=== PATIENT | male | born 1950 | race Caucasian/White ===

== ENCOUNTER → 2016-10-05 | Outpatient (CLI) | payer MEDICARE | LOC: GMAM 14:13 | PROVIDERS: ATTEND Family Medicine | DX: R80.9 Proteinuria, unspecified (principal) ==

== ENCOUNTER → 2016-10-25 | Outpatient (CLI) | payer MEDICARE | END | disposition home or self-care (01) | LOC: LAB.O 12:18 | PROVIDERS: ATTEND Internal Medicine Nephrology | DX: N18.4 Chronic kidney disease, stage 4 (severe) (principal); Z01.89 Encounter for other specified special examinations ==

== ENCOUNTER → 2017-04-30 | Outpatient (CLI) | payer MEDICARE | LOC: GMAM 11:34 | PROVIDERS: ATTEND Family Medicine | DX: E29.1 Testicular hypofunction (principal) ==

== ENCOUNTER → 2017-05-02 | Outpatient (CLI) | payer MEDICARE | LOC: GMAM 11:04 | PROVIDERS: ATTEND Family Medicine | DX: R35.0 Frequency of micturition (principal); R31.21 Asymptomatic microscopic hematuria; Z12.5 Encounter for screening for malignant neoplasm of prostate | CPT/HCPCS: 87086; G0103 ==

== ENCOUNTER → 2018-04-12 | Outpatient (CLI) | payer MEDICARE | LOC: GMAM 10:45 | PROVIDERS: ATTEND Family Medicine | DX: R97.20 Elevated prostate specific antigen [PSA] (principal) ==

== ENCOUNTER 2018-04-18 07:30 | Day surgery (SDC) | payer MEDICARE ==
[~2018-04-18 07:30] MED LIST: LIDOCAINE 1% 10 ML VIAL INJ ONE; PROPOFOL 200 MG/20 ML VIAL IV ONE
--- NOTE | 2018-04-18 10:44 | RAD ---
EXAM DESCRIPTION: Chest,2 Views CLINICAL HISTORY: PREOP COMPARISON: None TECHNIQUE: PA/lateral FINDINGS: There is no acute appearing cardiac or pulmonary abnormality. Heart size is normal with normal pulmonary vascularity. No pleural effusion or pneumothorax. Lungs are clear with no consolidating infiltrate. Lateral view shows intact sternum and T-spine. IMPRESSION: No acute process is identified in the chest. Electronically signed by: Jonnie Mccracken MD 04/18/2018 10:42 AM [facility]
[2018-04-18] MEDS ORDERED: PANTOPRAZOLE SODIUM TAB 40 MG PO ONE (10:49)
[2018-04-18] MEDS ORDERED: ceFAZolin SODIUM 1 GM VIAL ONE (11:12)
[2018-04-18] MEDS ORDERED: LACTATED RINGERS 1,000 ML ONE (11:12)
[2018-04-18] MEDS ORDERED: SODIUM CHL 0.9% 100ML MINI-BAG 100 ML IVPB ONE (11:12)
[2018-04-18] MEDS ORDERED: LIDOCAINE 1% 50 ML VIAL INJ ONE (11:53)
[2018-04-18] MEDS ORDERED: SODIUM BICARBONATE VIAL 50 MEQ/50 ML VIAL ONE (11:53)
[2018-04-18] MEDS ORDERED: MIDAZOLAM INJ 2 MG/2 ML VIAL ONE ×2 (11:55→12:14)
[2018-04-18] MEDS ORDERED: fentaNYL CITRATE INJ 50 MCG/ML AMP ONE (11:55)
--- NOTE | 2018-04-18 13:50 | OP ---
DATE OF PROCEDURE: 04/18/18 PREOPERATIVE DIAGNOSIS: 1. Melanoma site, right shoulder. POSTOPERATIVE DIAGNOSIS: 1. Melanoma site, right shoulder. PROCEDURE: 1. Excision of mass/lesion, right shoulder. SURGEON: Joel Gifford MD PROFILING MACHINE SET UP OPERATOR TOOL: None. ANESTHESIA: Local anesthesia. INDICATION: While being seen for a basal cell carcinoma of the ear, the patient was noted to have an irregular nevus on his posterior right shoulder. It was excised with close margins and found to be an infiltrating melanoma, 0.6 mm in depth. He has had a medical oncology consultation and they recommend only excision with margins. He was brought to the Surgical Suite today for excision of the melanoma site of the right shoulder. DESCRIPTION OF PROCEDURE: The incision was measured 1 cm from the scar circumferentially. It was an elliptical incision in the direction of the previous scar. It was marked with a marking pen and then infiltration of anesthesia. The skin was incised with a knife and dissection was carried down through the skin to the fascia using electrocautery. The lesion was then excised using electrocautery. It was marked with sutures at the 3 o'clock and 6 o'clock position and sent for pathologic evaluation. The wound was irrigated with local anesthesia. Hemostasis was noted to be adequate. At this point, the subcutaneous tissues were reapproximated with interrupted 2-0 Vicryl sutures. When this was done, the skin edges were approximated with 3-0 Nylon vertical mattress sutures. The skin was cleaned. A sterile pressure dressing was applied. The patient tolerated the procedure well. Estimated blood loss was probably 75 to 100 mL. The closed incision was 11.1 cm in length. #[id number] MTDD
[2018-04-18 14:53] VITALS: BP 151/72; TEMP 96.6; O2SAT 97
== END 2018-04-18 14:35 | disposition home or self-care (01) ==
LOC: AMB 07:30
PROVIDERS: ATTEND Surgery
DX: C46.1 Kaposi's sarcoma of soft tissue (principal); L98.8 Other specified disorders of the skin and subcutaneous tissue; E11.9 Type 2 diabetes mellitus without complications; K21.9 Gastro-esophageal reflux disease without esophagitis; Z95.5 Presence of coronary angioplasty implant and graft; Z87.891 Personal history of nicotine dependence; Z79.84 Long term (current) use of oral hypoglycemic drugs; Z79.82 Long term (current) use of aspirin; Z79.899 Other long term (current) drug therapy
CPT/HCPCS: 00300; 23075; 36415; 71046; 80048; 81001; 82948; 85025; 88305; 93005; J0690; J2250; J3010; J3490; J7050; J7120

== ENCOUNTER → 2018-07-26 | Outpatient (CLI) | payer MEDICARE | LOC: GMAM 10:53 | PROVIDERS: ATTEND Family Medicine | DX: R80.9 Proteinuria, unspecified (principal) ==

== ENCOUNTER → 2018-11-05 | Outpatient (CLI) | payer MEDICARE | LOC: GMAM 11:02 | PROVIDERS: ATTEND Family Medicine | DX: Z12.5 Encounter for screening for malignant neoplasm of prostate (principal) ==

== ENCOUNTER → 2018-11-27 | Outpatient (CLI) | payer MEDICARE ==
--- NOTE | 2018-11-28 10:38 | US ---
EXAM DESCRIPTION: Extremity,Lower Jaime Arteries: Ultrasound. CLINICAL HISTORY: PERIPHERAL VASCULAR DISEASE, UNSPECIFIED COMPARISON: None. TECHNIQUE: Doppler evaluation of the bilateral lower extremity arterial flow waveforms and velocities. FINDINGS: Arterial waveforms in the right lower extremity are triphasic from the right ASSOCIATE PROFESSOR OF ECONOMICS to the right popliteal artery. Biphasic in the right peroneal and right SHEET ROLLER OPERATOR arteries. Monophasic in the right DPA.. Arterial waveforms in the left lower extremity are triphasic and biphasic in the left ASSOCIATE PROFESSOR OF ECONOMICS through the left peroneal artery. Dampened biphasic left SHEET ROLLER OPERATOR and monophasic in the left DPA.. Comments: Velocities are relatively symmetric bilaterally. IMPRESSION: Possible mild to moderate atherosclerotic occlusive disease in the bilateral WU and DPA vessels. CTA bilateral lower extremities would be more specific. Electronically signed by: Randy Diane MD 11/28/2018 10:36 AM CDT
== END ==
LOC: US 08:30
PROVIDERS: ATTEND Family Medicine
DX: I73.9 Peripheral vascular disease, unspecified (principal)

== ENCOUNTER 2019-11-18 19:51 | Emergency (ER) | payer MEDICARE ==
[2019-11-18 20:37] VITALS: TEMP 98.1; O2SAT 95
--- NOTE | 2019-11-18 20:49 | RAD ---
EXAM DESCRIPTION: Tibia/Fibula,Left; 2 views CLINICAL HISTORY: 69 years Male, L LEG PAIN; FELL. COMPARISON: None. FINDINGS/IMPRESSION: 1. No acute fracture or dislocation. 2. Remodeling of the mid fibula diaphysis probably sequela of prior injury. 3. Soft tissues are unremarkable. Electronically signed by: Carson David MD 11/18/2019 8:47 PM CDT
--- NOTE | 2019-11-18 20:51 | RAD ---
EXAM DESCRIPTION: Shoulder, Left 2 or More Views; 2 frontal views CLINICAL HISTORY: 69 years Male, BL SHOULDER PAIN; FELL. COMPARISON: None. FINDINGS/IMPRESSION: 1. No acute fracture. 2. Humeral head projects over the bony glenoid. 3. Visualized left lung parenchyma is clear. Electronically signed by: Carson David MD 11/18/2019 8:49 PM CDT
--- NOTE | 2019-11-18 20:51 | RAD ---
EXAM DESCRIPTION: X-RAY Shoulder, Right 2 or More Views; 2 frontal views CLINICAL HISTORY: 69 years Male, BL SHOULDER PAIN; FELL. COMPARISON: None. FINDINGS/IMPRESSION: 1. No acute fracture. 2. Humeral head projects over the bony glenoid. 3. Visualized right lung parenchyma is clear. Electronically signed by: Carson David MD 11/18/2019 8:50 PM CDT
--- NOTE | 2019-11-18 20:53 | RAD ---
EXAM DESCRIPTION: X-RAY Hip, Right 2 Views; 2 views CLINICAL HISTORY: 69 years Male, R HIP PAIN; FELL. COMPARISON: None. FINDINGS/IMPRESSION: 1. No acute fracture or dislocation. 2. Soft tissues are unremarkable. Electronically signed by: Carson David MD 11/18/2019 8:51 PM CDT
--- NOTE | 2019-11-18 21:08 | ED.PDOC ---
History of Present Illness - General Chief Complaint: Trauma Stated Complaint: fall Time Seen by Provider: 11/18/19 20:14 Source: patient, family Exam Limitations: no limitations - History of Present Illness Initial Comments: SLIPPED ON A WET BOARD TONIGHT AND FELL. C/O PAIN IN BL SHOULDERS, R HIP, AND L LEG. NO PAIN AT REST, BUT PAIN IF ELEVATES ARMS. NO HEAD COLLISION. NO LOC. NO ALMONTE. NO NECK PAIN. Occurred: just prior to arrival Severity: moderate Pain Location: upper extremity, lower extremity Method of Injury: fall Improving Factors: immobilization Worsening Factors: movement Loss of Consciousness: no loss of consciousness Associated Symptoms (Fall): denies symptoms Allergies/Adverse Reactions: Allergies NO KNOWN ALLERGY Allergy (Verified 04/18/18 11:03) Home Medications: Ambulatory Orders Amlodipine Besylate-Benazepril [Lotrel 10-40 mg] 1 cap PO DAILY 04/18/18 Aspirin [Aspirin Adult Low Dose] 81 mg PO DAILY 04/18/18 Furosemide [Lasix] 40 mg PO PRN PRN 04/18/18 Hydrochlorothiazide 12.5 mg PO DAILY 04/18/18 Metformin HCl [Metformin Hydrochloride] 500 mg PO BID 04/18/18 Atorvastatin Calcium [Lipitor] 10 mg PO 11/18/19 Review of Systems - Review of Systems Constitutional: States: no symptoms reported EENTM: States: no symptoms reported Respiratory: States: no symptoms reported Cardiology: States: no symptoms reported Gastrointestinal/Abdominal: States: no symptoms reported Genitourinary: States: no symptoms reported Musculoskeletal: States: see HPI, joint pain, muscle pain. Denies: back pain, neck pain Skin: States: change in color - BRUISE ON L LEG. . Denies: lesions, rash Neurological: Denies: headache, tingling, weakness Endocrine: States: no symptoms reported Hematologic/Lymphatic: States: no symptoms reported All other Systems: Reviewed and Negative Past Medical History (General) - Patient Medical History Hx Seizures: No Hx Stroke: No Hx Dementia: No Hx Asthma: No Hx of COPD: No Hx Cardiac Disorders: Yes - Stints X 2 Hx Congestive Heart Failure: No Hx Pacemaker: No Hx Hypertension: Yes Hx Thyroid Disease: No Hx Diabetes: Yes Hx Gastroesophageal Reflux: No Hx Renal Disease: No Hx Cancer: Yes - Skin Hx of HIV: No Hx Hepatitis C: No Hx MRSA: No Surgical History: appendectomy, other - Vaccination History Hx Tetanus, Diphtheria Vaccination: No Hx Influenza Vaccination: Yes Hx Pneumococcal Vaccination: No - Social History Hx Tobacco Use: No Hx Chewing Tobacco Use: No Hx Alcohol Use: Yes Hx Substance Use: No Hx Substance Use Treatment: No Hx Depression: No Feels Threatened In Home Enviroment: No Feels Threatened In a Relationship: No Hx Physical Abuse: No Hx Emotional Abuse: No Hx Suspected Abuse: No - Female History Patient is a Female of Child Bearing Age (10 -59 yrs old): No - Triage Comment ED Triage Comment: The patient was alert and oriented times 4 and was in obvious discomfort. He complained of pain in bilateral shoulders and had difficulty raising both arms. He had a noted swollen area on the outside of his left leg with no abrasions noted. The patient did complain of a stabbing pain from time to time in his left leg. The patient also complained of tenderness to his right leg below his hip. He denied LOC and hitting his head, he had no noted nausea and no other obvious signs of injury noted. Family Medical History - Family History Mother Family History: No Known Living Status: Physical Exam - Physical Exam General Appearance: Alert, No apparent distress Head Injury: no evidence of injury Eye Exam: bilateral normal ENT Exam: hearing grossly normal, no evidence of ENT injury Neck Exam: non-tender, full range of motion Cardiovascular/Respiratory: regular rate, rhythm, no M/R/G, normal breath sounds Gastrointestinal/Abdominal: non tender, soft Back Exam: no CVA tenderness, no vertebral tenderness Extremity Exam: pelvis stable, pain with movement - BUE UNABLE TO FLEX SHOULDERS D/T PAIN. POS PAIN BUE AT PASSIVE ROM AT 90 DEGREES. R HIP PAIN WITH ACTIVE ROM BUT NOT WITH PASSIVE ROM. , other - GAIT NL. Neurologic: no motor/sensory deficits, normal mood/affect Skin Exam: warm/dry, other - FAINT ECCHYMOSIS OVER L MEDIAL LEG. - Marisel Coma Score Harrell Total: 15 Progress - Results/Orders Results/Orders: XRAYS NEG FOR FRX. I EXPLAINED COULD STILL HAVE ROTATOR CUFF INJURIES AND THUS NEEDS TO F/U W/ PCP FOR REPEAT EVALUATION IN 1 WEEK. Departure - Departure Clinical Impression: Acute right hip pain Bilateral shoulder pain Qualifiers: Chronicity: acute Qualified Code(s): M25.511 - Pain in right shoulder Shoulder contusion Qualifiers: Encounter type: initial encounter Laterality: unspecified laterality Qualified Code(s): S40.019A - Contusion of unspecified shoulder, initial encounter Contusion of right hip Qualifiers: Encounter type: initial encounter Qualified Code(s): S70.01XA - Contusion of right hip, initial encounter Contusion of left lower leg Qualifiers: Encounter type: initial encounter Qualified Code(s): S80.12XA - Contusion of left lower leg, initial encounter Disposition: Discharge to Home or Self Care Condition: Good Departure Forms: ED Discharge - Pt. Copy, Patient Portal Self Enrollment Instructions: DI for Trauma, Contusion (DC) Diet: resume usual diet Activity: increase activity as tolerated Referrals: Marcio Fofana MD [Primary Care Provider] - 1-2 Weeks Home Medications: Ambulatory Orders Amlodipine Besylate-Benazepril [Lotrel 10-40 mg] 1 cap PO DAILY 04/18/18 Aspirin [Aspirin Adult Low Dose] 81 mg PO DAILY 04/18/18 Furosemide [Lasix] 40 mg PO PRN PRN 04/18/18 Hydrochlorothiazide 12.5 mg PO DAILY 04/18/18 Metformin HCl [Metformin Hydrochloride] 500 mg PO BID 04/18/18 Atorvastatin Calcium [Lipitor] 10 mg PO 11/18/19 Additional Instructions: Please rest the area and apply ice for these first 48 hours. Take ibuprofen (Advil) as needed for pain. Please follow-up with your doctor if it is not improving over the coming week because even though there is no fracture, the rotator cuffs could be strained which would require further care.
--- NOTE | 2019-11-18 21:14 | RAD ---
EXAM DESCRIPTION: X-ray Clavicle,Left; 2 views CLINICAL HISTORY: 69 years Male, L SHOULDER PAIN; FELL. COMPARISON: None. FINDINGS/IMPRESSION: 1. No acute fracture or dislocation. 2. Degenerative changes of the acromioclavicular joint. Electronically signed by: Carson David MD 11/18/2019 9:12 PM CDT
[2019-11-18 21:43] VITALS: BP 136/92
== END 2019-11-18 21:41 | disposition home or self-care (01) ==
LOC: ER 19:51
DX: S70.01XA Contusion of right hip, initial encounter (principal); S80.12XA Contusion of left lower leg, initial encounter; S40.019A Contusion of unspecified shoulder, initial encounter; M25.511 Pain in right shoulder; M25.512 Pain in left shoulder; I51.9 Heart disease, unspecified; E11.9 Type 2 diabetes mellitus without complications; I10 Essential (primary) hypertension; Z95.5 Presence of coronary angioplasty implant and graft; Z85.828 Personal history of other malignant neoplasm of skin; Z79.82 Long term (current) use of aspirin; Z79.899 Other long term (current) drug therapy; W01.0XXA Fall on same level from slipping, tripping and stumbling without subsequent striking against object, initial encounter; Y92.9 Unspecified place or not applicable

== ENCOUNTER 2020-01-01 05:35 | Day surgery (SDC) | payer MEDICARE ==
[2020-01-01] MEDS ORDERED: LACTATED RINGERS 1,000 ML ONE (06:40)
[2020-01-01] MEDS ORDERED: LIDOCAINE 1% 10 ML VIAL INJ ONE (07:00)
[2020-01-01] MEDS ORDERED: PROPOFOL 200 MG/20 ML VIAL IV ONE (07:00)
[2020-01-01] MEDS ORDERED: LACTATED RINGERS 1,000 ML IVS ONE (08:20)
--- NOTE | 2020-01-01 10:23 | OP ---
DATE OF PROCEDURE: 01/01/20 PREOPERATIVE DIAGNOSIS: 1. History of colonic polyps. POSTOPERATIVE DIAGNOSIS: 1. Colonic polyps. PROCEDURE: 1. Colonoscopy with polypectomy, 3 with forceps, 1 with a snare. SURGEON: Joe Bryant MD ANESTHESIA: General. FINDINGS: Three small typical polyps were found, one in the distal ascending colon, one near the hepatic flexure and another near the distal transverse colon. The final one at the rectum was only about 10 cm. It was a larger polyp, approximately 2 cm, excised completely with snare. COMPLICATIONS: None. ESTIMATED BLOOD LOSS: None. PLAN: Discharge. INDICATION: As stated. PROCEDURE: Digital rectal exam was normal. The scope was inserted and passed all the way to the cecum. Upon withdrawal, a few polyps were seen. Otherwise, mucosal surfaces were normal. No additional polyps were left. The larger one was on a small stalk and we got it completely out with hot snare and it was retrieved. The patient tolerated the procedure and was taken to Recovery to be discharged. We will followup for pathology results. #[id number] cc: Marcio Fofana MD [facility]
[2020-01-01 10:52] VITALS: BP 175/82; TEMP 97.5; O2SAT 97
== END 2020-01-01 10:41 | disposition home or self-care (01) ==
LOC: AMB 05:35
PROVIDERS: ATTEND Surgery
DX: Z09 Encounter for follow-up examination after completed treatment for conditions other than malignant neoplasm (principal); D12.2 Benign neoplasm of ascending colon; D12.3 Benign neoplasm of transverse colon; D12.8 Benign neoplasm of rectum; E11.9 Type 2 diabetes mellitus without complications; I10 Essential (primary) hypertension; I25.10 Atherosclerotic heart disease of native coronary artery without angina pectoris; E78.00 Pure hypercholesterolemia, unspecified; Z86.010 Personal history of colon polyps; Z87.891 Personal history of nicotine dependence; Z79.82 Long term (current) use of aspirin; Z79.1 Long term (current) use of non-steroidal anti-inflammatories (NSAID); Z79.84 Long term (current) use of oral hypoglycemic drugs; Z79.899 Other long term (current) drug therapy
CPT/HCPCS: 00811; 36416; 45380; 45385; 82948; 88305; J3490; J7120

== ENCOUNTER 2020-05-05 16:50 | Inpatient (IN) | payer MEDICARE ==
--- NOTE | 2020-05-05 17:13 | ED.PDOC ---
History of Present Illness - General Chief Complaint: Respiratory Problem Stated Complaint: Dr. Kelly Fofana referred for hypoxia Time Seen by Provider: 05/05/20 17:10 Source: patient, RN notes reviewed, Vital Signs reviewed, RN/MD - Dr. Nicolasa Fofana, old records - from his ED visit on 05/04/2020 - History of Present Illness Initial Comments: Patient is a 70-year-old white male who presents with complaints of worsening shortness of breath and cough. Patient was seen here in the ED yesterday and was diagnosed with Covid. He has had a cough, fever and shortness of breath for last 3 days. As stated above his shortness of breath is worsening. Nothing makes it better. It is worse with exertion. It is constant. Cough is nonproductive. Timing/Duration: other - 3 days Severity: moderate Improving Factors: nothing Worsening Factors: movement Associated Symptoms: cough, fever/chills, shortness of breath Allergies/Adverse Reactions: Allergies NO KNOWN ALLERGY Allergy (Verified 04/18/18 11:03) Home Medications: Ambulatory Orders Amlodipine Besylate-Benazepril [Lotrel 10-40 mg] 1 cap PO DAILY 04/18/18 Aspirin [Aspirin Adult Low Dose] 81 mg PO DAILY 04/18/18 Furosemide [Lasix] 40 mg PO PRN PRN 04/18/18 Hydrochlorothiazide 12.5 mg PO DAILY 04/18/18 Metformin HCl [Metformin Hydrochloride] 1,000 mg PO BID 04/18/18 Ibuprofen [Advil] 200 - 400 mg PO PRN PRN 12/30/19 Cetirizine-Pseudoephedrine [Zyrtec-D Allergy/[place]] 1 tab PO DAILY 05/05/20 Esomeprazole Magnesium [Nexium 24Hr] 20 mg PO DAILY 05/05/20 HYDROcodone 7.5MG/APAP 325MG [[place] 7.5/325] 1 ea PO Q6H PRN 05/05/20 Meclizine HCl [Meclizine 25] 25 mg PO TID PRN 05/05/20 Methocarbamol 750 mg PO TID 05/05/20 Sildenafil Citrate [Viagra] 100 mg PO DAILY 05/05/20 Review of Systems - Review of Systems Constitutional: States: see HPI, fever, weakness. Denies: chills, malaise EENTM: States: no symptoms reported. Denies: eye pain, blurred vision, double vision Respiratory: States: see HPI, cough, short of breath. Denies: stridor, wheezing Cardiology: States: no symptoms reported. Denies: chest pain, edema, palpitations, syncope Gastrointestinal/Abdominal: States: no symptoms reported. Denies: abdominal pain, diarrhea, nausea, vomiting Genitourinary: States: no symptoms reported. Denies: dysuria, frequency Musculoskeletal: States: no symptoms reported. Denies: back pain, joint pain, neck pain Skin: States: no symptoms reported. Denies: change in color, rash Neurological: States: see HPI, weakness. Denies: headache, tingling, tremors Endocrine: States: no symptoms reported. Denies: increased hunger, increased t daily, increased urine Hematologic/Lymphatic: States: no symptoms reported. Denies: blood clots, easy bleeding Past Medical History (General) - Patient Medical History Hx Seizures: No Hx Stroke: No Hx Dementia: No Hx Asthma: No Hx of COPD: No Hx Cardiac Disorders: Yes - Stents X 2 Hx Congestive Heart Failure: No Hx Pacemaker: No Hx Hypertension: Yes Hx Thyroid Disease: No Hx Diabetes: Yes Hx Gastroesophageal Reflux: No Hx Renal Disease: No Hx Cancer: Yes - Skin Hx of HIV: No Hx Hepatitis C: No Hx MRSA: No - Vaccination History Hx Tetanus, Diphtheria Vaccination: No Hx Influenza Vaccination: Yes Hx Pneumococcal Vaccination: No - Social History Hx Tobacco Use: No Hx Chewing Tobacco Use: No Hx Alcohol Use: Yes Hx Substance Use: No Hx Substance Use Treatment: No Hx Depression: No Hx Physical Abuse: No Hx Emotional Abuse: No Hx Suspected Abuse: No Family Medical History - Family History Mother Family History: No Known Living Status: Physical Exam - Physical Exam General Appearance: Alert, Anxious, Obese, Well Developed, Well Groomed, Well Hydrated, Well Nourished Eye Exam: bilateral normal Ears, Nose, Throat: hearing grossly normal, normal ENT inspection, normal pharynx Neck: non-tender, full range of motion, supple Respiratory: chest non-tender, lungs clear, no accessory muscle use, decreased breath sounds, rhonchi - Diffusely throughout Cardiovascular/Chest: normal peripheral pulses, regular rate, rhythm, no edema, no gallop, no JVD, no murmur Peripheral Pulses: radial,right: 2+, radial,left: 2+ Gastrointestinal/Abdominal: normal bowel sounds, non tender, soft Back Exam: normal inspection, no CVA tenderness, no vertebral tenderness Extremity: normal range of motion, non-tender, normal inspection Neurologic: aerodynamic consultant II-XII nml as tested, no motor/sensory deficits, alert, normal mood/affect, oriented x 3 Skin Exam: normal color, warm/dry Lymphatic: no adenopathy Progress - Progress Progress: Differential diagnosis: COVID-19, pneumonia, PE, dehydration among others. 05/05/20 19:24 Patient with mild hypoxia at 87% on 2 L on arrival here. Plan on admission for further treatment. I discussed this with Dr. Nicolasa Fofana, the patient's PCP. I discussed this with Lucero Peralta NP who is excepted the patient for admission.Patient voices understanding and agreement with plan of care. Blake Rubalcava M.D. #[id number] - Results/Orders Results/Orders: EXAM DESCRIPTION: Chest,1 View CLINICAL HISTORY: Shortness of breath COMPARISON: Chest radiograph dated May 04, 2020 TECHNIQUE: One view radiograph of the chest FINDINGS: Lung volumes are shallow with associated bronchovascular crowding. Cardiac silhouette shows normal heart size. Pulmonary vascularity is within normal limits. Previously demonstrated multifocal groundglass opacities mildly improved compared to May 04, 2020, particularly of the right upper lobe. No pleural effusion. No pneumothorax. No acute osseous abnormality. IMPRESSION: 1. Shallow lung volumes with associated bronchovascular crowding. 2. Previously demonstrated multifocal groundglass opacities mildly improved compared to May 04, 2020, particularly of the right upper lobe. Electronically signed by: Merritt Ortiz MD 05/05/2020 5:46 PM HOME WORKER 05/05/20 17:10 Isolation:Airborne ONCE 05/05/20 17:15 Oxygen STAT Pulse Ox, Continuous Monitoring STAT 05/06/20 17:15 Oxygen STAT Pulse Ox, Continuous Monitoring STAT 05/07/20 17:15 Pulse Ox, Continuous Monitoring STAT Laboratory Results - last 24 hr 05/05/20 05/05/20 05/05/20 17:00 17:00 17:00 WBC 9.1 RBC 5.04 Hgb 14.3 Hct 41.9 L MCV 83.2 MCH 28.4 MCHC 34.2 RDW 13.7 Plt Count 138 MPV 9.1 Absolute Neuts (auto) 5.80 Absolute Lymphs (auto) 2.50 Absolute Monos (auto) 0.80 Absolute Eos (auto) 0.00 Absolute Basos (auto) 0.00 Neutrophils % 63.7 Lymphocytes % 27.7 Monocytes % 8.4 Eosinophils % 0.0 L Basophils % 0.2 PTT (SP) 28.3 D-Dimer, Quantitative 530.0 H Sodium 136 Potassium 3.3 L Chloride 97 L Carbon Dioxide 25 Anion Gap 17.3 BUN 27 H Creatinine 1.31 H BUN/Creatinine Ratio 20.6 H Random Glucose 201 H Serum Osmolality 282.8 Calcium 8.1 L Magnesium 1.6 L Total Bilirubin 0.9 AST 51 H ALT 33 Alkaline Phosphatase 41 L LD Total 228 H D Creatine Kinase 270 H* D Troponin I C-Reactive Protein 8.8 H* D B-Natriuretic Peptide 73.6 Serum Total Protein 8.0 Albumin 4.1 Globulin 3.9 H Albumin/Globulin Ratio 1.1 05/05/20 17:00 WBC RBC Hgb Hct MCV MCH MCHC RDW Plt Count MPV Absolute Neuts (auto) Absolute Lymphs (auto) Absolute Monos (auto) Absolute Eos (auto) Absolute Basos (auto) Neutrophils % Lymphocytes % Monocytes % Eosinophils % Basophils % PTT (SP) D-Dimer, Quantitative Sodium Potassium Chloride Carbon Dioxide Anion Gap BUN Creatinine BUN/Creatinine Ratio Random Glucose Serum Osmolality Calcium Magnesium Total Bilirubin AST ALT Alkaline Phosphatase LD Total Creatine Kinase Troponin I 0.05 C-Reactive Protein B-Natriuretic Peptide Serum Total Protein Albumin Globulin Albumin/Globulin Ratio Vital Signs 05/05/20 05/05/20 17:10 18:00 Temperature 99.0 F Pulse Rate [ 84 left brachial] Respiratory 22 Rate Blood Pressure 160/87 [left brachial] O2 Sat by Pulse 97 93 L Oximetry Departure - Departure Clinical Impression: COVID-19, Hypoxemia Disposition: Admit Patient Condition: Fair Departure Forms: ED Discharge - Pt. Copy, Patient Portal Self Enrollment Diet: resume usual diet Activity: as per physical therapy Referrals: Marcio Fofana MD [Primary Care Provider] - 1-2 Weeks Home Medications: Ambulatory Orders Amlodipine Besylate-Benazepril [Lotrel 10-40 mg] 1 cap PO DAILY 04/18/18 Aspirin [Aspirin Adult Low Dose] 81 mg PO DAILY 04/18/18 Furosemide [Lasix] 40 mg PO PRN PRN 04/18/18 Hydrochlorothiazide 12.5 mg PO DAILY 04/18/18 Metformin HCl [Metformin Hydrochloride] 1,000 mg PO BID 04/18/18 Ibuprofen [Advil] 200 - 400 mg PO PRN PRN 12/30/19 Cetirizine-Pseudoephedrine [Zyrtec-D Allergy/[place]] 1 tab PO DAILY 05/05/20 Esomeprazole Magnesium [Nexium 24Hr] 20 mg PO DAILY 05/05/20 HYDROcodone 7.5MG/APAP 325MG [[place] 7.5/325] 1 ea PO Q6H PRN 05/05/20 Meclizine HCl [Meclizine 25] 25 mg PO TID PRN 05/05/20 Methocarbamol 750 mg PO TID 05/05/20 Sildenafil Citrate [Viagra] 100 mg PO DAILY 05/05/20 Decision To Admit - Decistion To Admit Decision to Admit Date: 05/05/20 Decision to Admit Time: 18:15
--- NOTE | 2020-05-05 17:48 | RAD ---
EXAM DESCRIPTION: Chest,1 View CLINICAL HISTORY: Shortness of breath COMPARISON: Chest radiograph dated May 04, 2020 TECHNIQUE: One view radiograph of the chest FINDINGS: Lung volumes are shallow with associated bronchovascular crowding. Cardiac silhouette shows normal heart size. Pulmonary vascularity is within normal limits. Previously demonstrated multifocal groundglass opacities mildly improved compared to May 04, 2020, particularly of the right upper lobe. No pleural effusion. No pneumothorax. No acute osseous abnormality. IMPRESSION: 1. Shallow lung volumes with associated bronchovascular crowding. 2. Previously demonstrated multifocal groundglass opacities mildly improved compared to May 04, 2020, particularly of the right upper lobe. Electronically signed by: Merritt Ortiz MD 05/05/2020 5:46 PM CHALK TESTER
[2020-05-05] MEDS ORDERED: REMDESIVIR 200 MG in SODIUM CHLORIDE 0.9% 250ML 250 ML IVPB ONE (19:25)
[2020-05-05] MEDS ORDERED: AZITHROMYCIN IV 500 MG in SODIUM CHLORIDE 0.9% 250ML 250 ML IVPB ONE (19:25)
[2020-05-05] MEDS ORDERED: cefTRIAXone SODIUM 1 GM in SODIUM CHL 0.9% 50ML MIN-BAG+ 50 ML IVPB ONE (19:25)
[2020-05-05] MEDS ORDERED: DEXAMETHASONE INJ 10 MG/ML VIAL IV ONE (19:26)
--- NOTE | 2020-05-05 20:21 | HP ---
PHYSICIAN: Marcio Fofana MD CHIEF COMPLAINT: Worsening shortness of breath. HISTORY OF PRESENT ILLNESS: Mr. Chow is a 70-year-old male patient who presented to the Emergency Room on request of Dr. Fofana after he called Dr. Fofana and reported he was having increasing shortness of breath. He was in the ER the previous day on 05/04/20, diagnosed with COVID and was given monoclonal infusion. He noted about 3 days prior to that, he started running a fever with cough and was having some shortness of breath. He noted his shortness of breath had worsened significantly and he called Dr. Fofana. Dr. Fofana requested he go to the Emergency Room for evaluation. Initially in the ER, on room air, his oxygen saturation was 87%. COVID labs were completed. A chest x-ray showed some multifocal ground glass opacities, more present in the right upper lobe. Given his diagnosis of COVID pneumonitis with worsening shortness of breath and room air saturations at 87%, the patient is going to be admitted now for further evaluation and treatment for COVID pneumonitis and developing pneumonia. He was admitted in stable condition. PAST MEDICAL HISTORY: 1. Carotid artery stenosis. 2. Coronary artery disease with previous stent placements in 2012. 3. Hyperlipidemia. 4. Hypertension with grade 1 diastolic failure with last echocardiogram in 2016 showing ejection fraction of approximately 60%. 5. Peripheral vascular disease with venous insufficiency. 6. Dilated ascending aorta diagnosed in 2011, followed by Dr. Fofana. 7. Benign prostatic hypertrophy. 8. Type 2 diabetes mellitus, on oral medications. 9. Melanoma diagnosed in 2019. 10. Obesity. 11. Mild polycythemia. PAST SURGICAL HISTORY: 1. Appendectomy at age 2. 2. Lasik surgery. 3. Three cardiac stents in 2012. 4. Melanoma removed from right shoulder. 5. Left shoulder rotator cuff repair and biceps repair in 2019. HOME MEDICATIONS: 1. Lipitor 10 mg daily. 2. Multivitamin 1 daily. 3. Aspirin 81 mg daily. 4. Nexium 24 Hour 20 mg daily. 5. Hydrochlorothiazide 12.5 mg daily. 6. Lasix 40 mg as needed for ankle swelling. 7. Metformin 1000 mg b.i.d. 8. Lotrel 10-40 mg 1 capsule daily. ALLERGIES: NO KNOWN DRUG ALLERGIES. FAMILY HISTORY: Father at age 80 from a stroke. Mother in her 80s from complications from cancer. She also had vascular disease and carotid artery stenosis. She has two brothers, both with coronary artery disease, peripheral vascular disease and one with renal carcinoma. One son is healthy and one daughter is healthy. SOCIAL HISTORY: The patient lives in [place], [place]. He is . 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 He does have a history of smoking cigarettes, but quit in 1980. He uses alcohol on rare occasions, socially, and does not use any illicit drugs. REVIEW OF SYSTEMS: CONSTITUTIONAL: Positive for general malaise, fever and weakness. No unintentional weight loss. HEENT: Denies headaches, vision changes, sore throats, earaches, nasal congestion. RESPIRATORY: Positive for cough, shortness of breath. CARDIOVASCULAR: Denies chest pain, palpitations or syncopal episodes. GASTROINTESTINAL: Denies nausea, vomiting, diarrhea, constipation. GENITOURINARY: Denies dysuria, hematuria, polyuria. MUSCULOSKELETAL: Denies any back pain, joint pain or neck pain. SKIN: Denies lesions, rashes, moles or unexplained changes. NEUROLOGIC: Generalized weakness. Denies headaches, tingling, tremors, ataxia, seizures or syncopal episodes. HEMATOLOGIC: Denies unexplained bleeding, bruising or transfusion reactions. PHYSICAL EXAMINATION: VITAL SIGNS: Initially in the Emergency Room on room air, saturation was 87% and improved to 93% with nasal cannula at 3 liters. Blood pressure 160/87, respirations 22, heart rate 84, temperature 99.0. GENERAL: The patient is resting comfortably in no acute distress. He is alert. HEENT: Tympanic membranes clear bilaterally. Oropharynx is pink, moist without any lesions. NECK: Supple, nontender with full range of motion. No jugular venous distention noted. RESPIRATORY: Lung sounds are fairly clear, just diminished towards the bases. CARDIOVASCULAR: Regular rate and rhythm without any appreciable murmurs, gallops, or rubs. ABDOMEN: Soft, nontender. Positive bowel sounds. EXTREMITIES: There is no cyanosis, clubbing or edema. BACK: No CVA or vertebral tenderness. RECTAL: Deferred. NEUROLOGIC: Cranial nerves II-XII are grossly intact. No obvious motor deficits. The patient is alert and oriented times three. SKIN: Warm, pink and dry. LABORATORY: White count on admission 9,100, hemoglobin 14.3, hematocrit 41.9, platelet count 138,000. D-dimer 530. Chemistries showed sodium 136, potassium 3.3, BUN 27, creatinine initially 1.31. Blood sugar 201. Calcium 8.1, magnesium 1.6. AST slightly elevated at 51 with ALT 33, CK elevated at 27, troponin 0.05, C-reactive protein 8.8. RADIOLOGY: Chest x-ray per radiologic interpretation showed lung volumes with associated bronchovascular crowding with previously demonstrated multifocal ground glass opacities, mildly improved compared to 05/04/20, particularly in the right upper lobe. ASSESSMENT: 1. COVID pneumonitis. 2. Renal insufficiency, likely some mild prerenal azotemia. 3. Hypertension with grade 1 diastolic dysfunction with last echocardiogram in 2017 showing ejection fraction of 60%. 4. Diabetes mellitus, type 2, on oral therapy. 5. History of coronary artery disease with previous stents. 6. Mild electrolyte imbalance with a hypokalemia and hypomagnesemia. PLAN: Mr. Cohw is going to be admitted for further treatment of COVID pneumonitis as he was showing room air hypoxia and does not normally wear oxygen. With his initial saturations of 87%, certainly warrants admission for treatment and initiation of antibiotics and steroids. He was started on azithromycin, Rocephin, Decadron, remdesivir. He will also be on Protonix, Align and guaifenesin. He will have aggressive bronchial hygiene with albuterol treatments as needed. We will review his home medications and resume those as appropriate to his care. We will replace his electrolytes as appropriate for low potassium and magnesium and recheck in the morning. We will anticipate his length of stay to be at least 2 to 3 days. Until the patient can transition to outpatient management, we will continue to monitor and treat as needed. #[id number] [facility]
[2020-05-05] MEDS ORDERED: SODIUM CHLORIDE 0.9% 250ML 250 ML ONE (20:26)
[2020-05-05] MEDS ORDERED: REMDESIVIR IV 100 MG VIAL ONE (20:36)
[2020-05-05] MEDS ORDERED: SODIUM CHLORIDE 0.9% (FLUSH) 10 ML SYG IV PRN (20:44)
[2020-05-05] MEDS ORDERED: ONDANSETRON INJ 4 MG/2 ML VIAL IV PRN (20:44)
[2020-05-05] MEDS ORDERED: ACETAMINOPHEN 325 MG TAB PO PRN (20:44)
[2020-05-05] MEDS ORDERED: ALBUTEROL INHALER 64 PUFF/8GM INH PRN (20:48)
[2020-05-05] MEDS ORDERED: HYDROcodone 7.5MG/APAP 325MG 1 EA TAB PO PRN (20:51)
[2020-05-05] MEDS ORDERED: MECLIZINE HCL 25 MG PO PRN (20:51)
[2020-05-05] MEDS ORDERED: GLUCAGON INJ 1 MG VIAL SUBCU PRN (20:53)
[2020-05-05] MEDS ORDERED: DEXTROSE 50% 25 GM/50 ML SYG IV PRN (20:53)
[2020-05-05] MEDS ORDERED: METHOCARBAMOL 750 MG TAB PO SCH (21:00)
[2020-05-05] MEDS ORDERED: IV SET AND CAP CHANGE INJ INJ SCH (21:00)
[2020-05-05] MEDS ORDERED: metFORMIN HCL 500 MG TAB PO SCH (21:00)
[2020-05-05] MEDS ORDERED: METHOCARBAMOL 750 MG TAB ONE (21:38)
[2020-05-05] MEDS: BIFIDOBACTERIUM INFANTIS 4 MG CAP PO SCH (21:39)
[2020-05-05] MEDS: guaiFENesin ER TAB 600 MG TAB PO SCH (21:39)
[2020-05-05] MEDS: ENOXAPARIN SODIUM 40 MG/0.4 ML SYG SUBCU SCH (21:40)
[2020-05-05] MEDS: SODIUM CHLORIDE 0.9% (FLUSH) 10 ML SYG IV SCH (21:41)
[2020-05-05] MEDS: INSULIN LISPRO 100 UNITS/ML PEN SUBCU SCH (22:26)
[2020-05-06] MEDS: PANTOPRAZOLE SODIUM IV 40 MG VIAL IV SCH (05:51)
[2020-05-06] MEDS: INSULIN LISPRO 100 UNITS/ML PEN SUBCU SCH ×4 (08:01→20:58)
[2020-05-06] MEDS ORDERED: metFORMIN HCL 500 MG TAB ONE (08:30)
[2020-05-06] MEDS ORDERED: hydroCHLOROthiazide 12.5 MG CAP ONE (08:30)
[2020-05-06] MEDS ORDERED: DEXAMETHASONE INJ 10 MG/ML VIAL ONE (08:30)
[2020-05-06] MEDS ORDERED: AZITHROMYCIN IV 500 MG VIAL IVPB ONE (08:30)
[2020-05-06] MEDS ORDERED: ASPIRIN (CHEWABLE) 81 MG TAB ONE (08:30)
[2020-05-06] MEDS ORDERED: BIFIDOBACTERIUM INFANTIS 4 MG CAP ONE (08:30)
[2020-05-06] MEDS ORDERED: guaiFENesin ER TAB 600 MG TAB ONE (08:30)
[2020-05-06] MEDS ORDERED: SODIUM CHL 0.9% 50ML MIN-BAG+ 50 ML IVPB ONE (08:31)
[2020-05-06] MEDS ORDERED: ATORVASTATIN 10 MG TAB ONE ×2 (08:31→19:52)
[2020-05-06] MEDS ORDERED: SODIUM CHLORIDE 0.9% 250ML 250 ML ONE (08:31)
[2020-05-06] MEDS ORDERED: INSULIN LISPRO 100 UNITS/ML PEN SUBCU ONE (08:31)
[2020-05-06] MEDS ORDERED: cefTRIAXone SODIUM 1 GM VIAL ONE (08:31)
[2020-05-06] MEDS: metFORMIN HCL 500 MG TAB PO SCH ×2 (09:13→17:16)
[2020-05-06] MEDS: ASPIRIN (CHEWABLE) 81 MG TAB PO SCH (09:13)
[2020-05-06] MEDS: BIFIDOBACTERIUM INFANTIS 4 MG CAP PO SCH ×2 (09:13→20:38)
[2020-05-06] MEDS: cefTRIAXone SODIUM 1 GM in SODIUM CHL 0.9% 50ML MIN-BAG+ 50 ML IVPB SCH (09:14)
[2020-05-06] MEDS: LISINOPRIL 10 MG TAB PO SCH (09:14)
[2020-05-06] MEDS: guaiFENesin ER TAB 600 MG TAB PO SCH ×2 (09:14→20:38)
[2020-05-06] MEDS: amLODIPine BESYLATE 5 MG TAB PO SCH (09:14)
[2020-05-06] MEDS: hydroCHLOROthiazide 12.5 MG CAP PO SCH (09:14)
[2020-05-06] MEDS: DEXAMETHASONE INJ 10 MG/ML VIAL IV SCH (09:14)
[2020-05-06] MEDS: SODIUM CHLORIDE 0.9% (FLUSH) 10 ML SYG IV SCH ×2 (09:15→20:39)
[2020-05-06] MEDS ORDERED: MAGNESIUM SULFATE PREMIX 2GM 2 GM in PREMIX BAG 1 BAG IVPB ONE (09:34)
[2020-05-06] MEDS: ALBUTEROL INHALER 64 PUFF/8GM INH SCH ×4 (09:39→21:40)
[2020-05-06] MEDS: AZITHROMYCIN IV 500 MG in SODIUM CHLORIDE 0.9% 250ML 250 ML IVPB SCH (10:34)
[2020-05-06] MEDS: REMDESIVIR 100 MG in SODIUM CHLORIDE 0.9% 250ML 250 ML IVPB SCH (13:35)
[2020-05-06] MEDS ORDERED: MAGNESIUM SULFATE PREMIX 2GM 50 ML IVPB ONE (15:35)
[2020-05-06] MEDS ORDERED: SODIUM CHLORIDE 0.9% 500ML 500 ML IVS ONE ×3 (16:35→20:39)
[2020-05-06] MEDS: ATORVASTATIN 10 MG TAB PO SCH (20:38)
[2020-05-06] MEDS: ENOXAPARIN SODIUM 40 MG/0.4 ML SYG SUBCU SCH (20:38)
[2020-05-07] MEDS ORDERED: SODIUM CHLORIDE 0.9% 500ML 500 ML IVS ONE ×2 (00:14→01:42)
[2020-05-07] MEDS: PANTOPRAZOLE SODIUM IV 40 MG VIAL IV SCH (06:16)
[2020-05-07] MEDS: INSULIN LISPRO 100 UNITS/ML PEN SUBCU SCH ×4 (07:35→20:53)
--- NOTE | 2020-05-07 08:08 | RAD ---
EXAM DESCRIPTION: Chest,1 View: CR/DR/XR. CLINICAL HISTORY: 70 years Male COVID PNA COMPARISON: Single view chest x-ray May 05. TECHNIQUE: ONE VIEW PORTABLE. AP 727 hours, upright position. FINDINGS: Bilateral lung volumes are decreased. Bilateral subpleural peripheral infiltrates. Cardiomegaly. Pulmonary vascularity increased. No large pleural effusions. Monitoring leads on the chest. IMPRESSION: No etiology findings consistent with clinical history. Poor inspiratory effort. Possible congestive heart failure. Electronically signed by: Randy Diane MD 05/07/2020 8:06 AM [facility]
[2020-05-07] MEDS: amLODIPine BESYLATE 5 MG TAB PO SCH (08:33)
[2020-05-07] MEDS: guaiFENesin ER TAB 600 MG TAB PO SCH ×2 (08:33→20:50)
[2020-05-07] MEDS: DEXAMETHASONE INJ 10 MG/ML VIAL IV SCH (08:33)
[2020-05-07] MEDS: LISINOPRIL 10 MG TAB PO SCH (08:33)
[2020-05-07] MEDS: BIFIDOBACTERIUM INFANTIS 4 MG CAP PO SCH ×2 (08:33→20:50)
[2020-05-07] MEDS: ASPIRIN (CHEWABLE) 81 MG TAB PO SCH (08:33)
[2020-05-07] MEDS: metFORMIN HCL 500 MG TAB PO SCH ×2 (08:35→17:10)
[2020-05-07] MEDS: hydroCHLOROthiazide 12.5 MG CAP PO SCH (08:35)
--- NOTE | 2020-05-07 08:39 | CT ---
Study: CT abdomen and pelvis. Indication: Gross hematuria, COVID PNA Technique: CT of the abdomen and pelvis obtained without intravenous contrast. This exam was performed according to our departmental dose-optimization program, which includes automated exposure control, adjustment of the mA and/or kV according to patient size and/or use of iterative reconstruction technique. Comparison: None. Findings: Patchy groundglass opacities lung bases concerning for pneumonia. Mild cardiomegaly. Hepatic steatosis and hepatomegaly. Gallbladder, pancreas, spleen, adrenal glands demonstrate a normal unenhanced CT appearance. 4 cm low-density right renal lesion, likely a cyst. Mild nonspecific bilateral perinephric stranding. No hydronephrosis or nephrolithiasis. Stomach as well as visualized portions of small bowel and colon unremarkable. No free fluid. No free air. Degenerative changes of the spine noted. Atherosclerosis aorta. Impression: Moderate nonspecific bilateral perinephric stranding without hydronephrosis or nephrolithiasis. Suspected right renal cyst. Renal sonogram could better evaluate. Hepatic steatosis and hepatomegaly. Patchy groundglass opacities lung bases concerning for pneumonia. COVID-19 could give this appearance. Additional findings as above. Electronically signed by: Javier Ruggiero MD 05/07/2020 8:37 AM [facility]
[2020-05-07] MEDS: SODIUM CHLORIDE 0.9% (FLUSH) 10 ML SYG IV SCH ×2 (08:40→20:50)
[2020-05-07] MEDS: cefTRIAXone SODIUM 1 GM in SODIUM CHL 0.9% 50ML MIN-BAG+ 50 ML IVPB SCH (08:40)
[2020-05-07] MEDS: AZITHROMYCIN IV 500 MG in SODIUM CHLORIDE 0.9% 250ML 250 ML IVPB SCH (08:40)
[2020-05-07] MEDS: ALBUTEROL INHALER 64 PUFF/8GM INH SCH ×5 (09:42→21:30)
[2020-05-07] MEDS: REMDESIVIR 100 MG in SODIUM CHLORIDE 0.9% 250ML 250 ML IVPB SCH (12:04)
--- NOTE | 2020-05-07 16:11 | PN ---
SUPERVISING PHYSICIAN: Marcio Fofana MD DATE: 05/06/20 SUBJECTIVE: The patient seems to be doing okay. He is not really having any shortness of breath other than with some mild exertion and he does have cough. He has been afebrile. OBJECTIVE: VITAL SIGNS: Temperature 97.5. Pulse 76. Blood pressure 134/86. Respirations 20. Saturation 95% on 4 liters nasal cannula. GENERAL: The patient is resting comfortably in no acute distress. He is alert. CHEST: Lung sounds remain fairly clear, just diminished towards the bases. HEART: Regular rate and rhythm. ABDOMEN: Soft, nontender. Positive bowel sounds. EXTREMITIES: No edema. NEUROLOGIC: Alert and oriented times three. LABORATORY: White count 5,400, hemoglobin 13.0, hematocrit 38.4. Differential does show a slight left shift. Chemistries show lactic acidosis with associated metabolic acidosis. His lactic acid on labs was 4.5. Magnesium 1.7. Creatinine had gone up to 1.6. Sodium 133, potassium 3.5, CO2 low at 19, anion gap 20.5. Liver functions are within normal limits. LDH is elevated at 189, CK 186. C-reactive protein 10.7. RADIOLOGY: No additional radiographic studies. ASSESSMENT: 1. COVID pneumonitis. 2. Lactic acidosis, possibly due to sepsis, secondary to #1. 3. Gross hematuria, etiology uncertain. 4. Renal insufficiency, probably due to prerenal azotemia, exacerbated by lactic acidosis. 5. Hypertension with grade 1 diastolic dysfunction with last echocardiogram in 2017 showing ejection fraction of 60%. 6. Diabetes mellitus, type 2, on oral therapy. 7. History of coronary artery disease with previous stents. 8. Mild electrolyte imbalance with a hypokalemia and hypomagnesemia. PLAN: We will continue plan of care and treatment with remdesivir and antibiotic coverage empirically with Rocephin and azithromycin. Given his lactic acidosis, I will give him some fluid cautiously. We will start with 500 bolus and continue after that with reevaluation and follow his lactic acid and hopefully will normalize. At this point, I am not sure what is driving the lactic acid because he has not been hypotensive, he has not been really hypoxic, but certainly we will follow his course and ensure that is normalizing. In regards to the hematuria, we will get a CT of the abdomen to ensure there is not some underlying pathology resulting in other than just maybe a kidney stone he did not realize he had versus some complications related to the anticoagulation. He remains on aggressive pulmonary hygiene. We will continue to titrate his oxygen down to room air as tolerated. We will follow his labs. I would anticipate that if we can get his labs normalized and reverse the lactic, he will probably be able to discharge within the next 24 to 48 hours. Until that point, we will continue to monitor and treat as needed. #[id number] [facility]
--- NOTE | 2020-05-07 17:21 | PN ---
SUPERVISING PHYSICIAN: Marcio Fofana MD DATE: 05/07/20 SUBJECTIVE: The patient got fluid overnight and tolerated that without any complications. His lactic acid normalized. He notes that he feels a little bit better than yesterday. He is still having some shortness of breath and has required a little bit of increasing oxygen demand in the form of increased flow with his nasal cannula. Otherwise, he is stable. OBJECTIVE: VITAL SIGNS: Temperature 98. Pulse 78. Blood pressure 150/78. Respirations 18. Saturation 94% on 4 liters nasal cannula. GENERAL: The patient is resting comfortably in no acute distress. He is alert. CHEST: Lung sounds remain fairly clear, just diminished towards the bases. HEART: Regular rate and rhythm. ABDOMEN: Soft, nontender. Positive bowel sounds. EXTREMITIES: No edema. NEUROLOGIC: Alert and oriented times three. LABORATORY: White count 8,600, hemoglobin 13.7, hematocrit 36.5, platelet count 139,000. Differential shows a resolved left shift. D-dimer is normal at 179. Chemistries show now that his anion gap is closed at 14.8. BUN a little elevated at 37, but creatinine is corrected back to baseline at 1.15. Otherwise, sodium and potassium are normal. Carbon dioxide is still a little low, but improved up to 20. Blood sugars range between 193 and 251. Lactic acid now is 2.0. Calcium 7.7 corrects to 8.2 for albumin of 3.1. Liver functions are within normal limits. C-reactive protein is down to 6.2 from admission of 10.7. Urinalysis showed 100 protein, 250 glucose, otherwise fairly unremarkable. He did show 1+ bacteria, but showed 1 to 3 epithelials and it was a voided specimen. Serum ketones negative. RADIOLOGY: Chest x-ray this morning per radiologic interpretation showed no etiology of findings consistent with clinical history, just poor inspiratory effort with possible congestive failure. He did have a CT of the abdomen this morning as well that showed some patchy ground glass opacities in the lung bases concerning for pneumonia. There was some moderate nonspecific bilateral perinephric stranding without any hydronephrosis and nephrolithiasis, suspected right renal cyst, recommend renal ultrasound for better evaluation as allowed and there is some note of hepatic steatosis and hepatomegaly. ASSESSMENT: 1. COVID pneumonitis. 2. Lactic acidosis, probably due to some sepsis from #1, resolved with fluids. 3. Gross hematuria, etiology uncertain with no acute findings noted on CT. 4. Renal insufficiency, probably due to prerenal azotemia, improved with fluids and now back to baseline levels. 5. Hypertension with grade 1 diastolic dysfunction with last echocardiogram in 2017 showing ejection fraction of 60%, no signs of exacerbation. 6. Diabetes mellitus, type 2, on oral therapy. 7. History of coronary artery disease with previous stents. 8. Mild electrolyte imbalance with a hypokalemia and hypomagnesemia. PLAN: We will continue with empiric coverage with antibiotics and remdesivir and Decadron. His lactic acidosis resolve with fluids, therefore, he has been saline locked. We will continue to titrate his oxygen down as he can to room air. Hopefully, based off his labs showing improvement, if he is not requiring any increasing oxygen demand, he can probably go home tomorrow. Again, he did get the monoclonal infusion and he has the remdesivir. In regards to the hematuria, I am not sure if that was maybe a little of cystitis, but no concerning findings on CT. There may have been some nephrolithiasis that passed that he just did not realize, but no signs of it on CT scan. He does remain on anticoagulation and, again, the hematuria seems to be resolved. Hopefully, he will be able to titrate oxygen down and discharge tomorrow or Sunday. Until then, we will continue to monitor and treat as needed. #[id number] [facility]
[2020-05-07] MEDS: ENOXAPARIN SODIUM 40 MG/0.4 ML SYG SUBCU SCH (20:50)
[2020-05-07] MEDS: ATORVASTATIN 10 MG TAB PO SCH (20:50)
[2020-05-08] MEDS: PANTOPRAZOLE SODIUM IV 40 MG VIAL IV SCH (05:51)
[2020-05-08] MEDS: metFORMIN HCL 500 MG TAB PO SCH (07:22)
--- NOTE | 2020-05-08 07:22 | RAD ---
EXAM DESCRIPTION: Chest,1 View CLINICAL HISTORY: covid PNA COMPARISON: Chest x-ray 05/07/2020. TECHNIQUE: Single view of the chest. FINDINGS: Lung volumes adequate. Cardiac silhouette is enlarged, unchanged. No pneumothorax. Grossly unchanged bilateral interstitial predominant airspace disease. IMPRESSION: Grossly unchanged bilateral interstitial predominant airspace disease. Electronically signed by: Arnel Pendleton MD 05/08/2020 7:20 AM [facility]
[2020-05-08] MEDS: INSULIN LISPRO 100 UNITS/ML PEN SUBCU SCH ×2 (07:57→13:26)
[2020-05-08] MEDS: cefTRIAXone SODIUM 1 GM in SODIUM CHL 0.9% 50ML MIN-BAG+ 50 ML IVPB SCH (08:58)
[2020-05-08] MEDS: AZITHROMYCIN IV 500 MG in SODIUM CHLORIDE 0.9% 250ML 250 ML IVPB SCH (08:58)
[2020-05-08] MEDS: hydroCHLOROthiazide 12.5 MG CAP PO SCH (08:59)
[2020-05-08] MEDS: DEXAMETHASONE INJ 10 MG/ML VIAL IV SCH (08:59)
[2020-05-08] MEDS: BIFIDOBACTERIUM INFANTIS 4 MG CAP PO SCH (08:59)
[2020-05-08] MEDS: LISINOPRIL 10 MG TAB PO SCH (08:59)
[2020-05-08] MEDS: amLODIPine BESYLATE 5 MG TAB PO SCH (08:59)
[2020-05-08] MEDS: guaiFENesin ER TAB 600 MG TAB PO SCH (08:59)
[2020-05-08] MEDS: ASPIRIN (CHEWABLE) 81 MG TAB PO SCH (08:59)
[2020-05-08] MEDS: ALBUTEROL INHALER 64 PUFF/8GM INH SCH ×2 (09:00→13:00)
[2020-05-08] MEDS: SODIUM CHLORIDE 0.9% (FLUSH) 10 ML SYG IV SCH (09:00)
[2020-05-08 10:43] VITALS: O2SAT 95
[2020-05-08] MEDS: REMDESIVIR 100 MG in SODIUM CHLORIDE 0.9% 250ML 250 ML IVPB SCH (11:55)
[2020-05-08 14:30] VITALS: BP 129/73; TEMP 98.2
--- NOTE | 2020-05-15 11:23 | DS ---
SUPERVISING PHYSICIAN: Marcio Fofana MD DISCHARGE DIAGNOSES: 1. COVID pneumonitis. 2. Lactic acidosis, probably due to some sepsis from #1, resolved with fluids. 3. Gross hematuria, etiology unknown with no acute findings noted on CT. 4. Renal insufficiency, probably due to prerenal azotemia, improved with fluids and now back to baseline levels. 5. Hypertension. 6. Congestive heart failure with grade 1 diastolic dysfunction with last echocardiogram in 2017 showed ejection fraction of 60%, no signs of exacerbation. 6. Diabetes mellitus, type 2. 7. Coronary artery disease with previous stents. 8. Mild electrolyte imbalance with a hypokalemia and hypomagnesemia that is now resolved. HISTORY OF PRESENT ILLNESS: This is a 70-year-old male patient who presented to the Emergency Room on the request of his primary care physician, Dr. Fofana. He was having increasing shortness of breath. He was in the ER the previous day and was diagnosed with COVID and given a monoclonal antibody infusion. About 3 days prior to that, he started running a fever and was having shortness of breath at that time. It had worsened significantly to the point he called Dr. Fofana. Dr. Fofana requested that he go to the Emergency Room. His oxygen saturation was was 87% in the Emergency Room. Chest x-ray x-ray showed some multifocal ground glass opacities, more present in the right upper lobe. He was admitted to the hospital for COVID pneumonitis. HOSPITAL COURSE: The patient was admitted to the hospital and placed on the Covid guidelines including labs as well as Rocephin, Decadron. He was also on Protonix, Align and guaifenesin. He was given aggressive pulmonary hygiene with albuterol inhaler both p.r.n. and scheduled. His electrolytes were replaced as indicated. He did require oxygen but his clinical picture improved over the next two days. He was cautiously given some fluids and continued to have an elevated lactic but it had improved after several days. He had no further complaints of shortness of breath and was very anxious to go home. We were unable to titrate him off of his oxygen so home oxygen was ordered and today he will be discharged home in stable condition. LABORATORY: WBCs were stable between 5.4 and 9.1. Hemoglobin and hematocrit were stable at 12 and 35. D-dimer was elevated at 530 on admission and is now 132. Lactic acid on admit was 4.5 and after 2 days it came down to 2. His sodium was stable at 138, potassium was as low as 3.3 and is now 3.6. Chloride was 97 and is now 106. BUN was as high as 45 and is now 24. His creatinine was 1.31 on admission and went up to 1.6 and is now 0.83. Magnesium was as low as 1.6 and is now 2. Calcium was down to 7.7 and is now 8.1. Urinalysis was unremarkable. Serum ketones were negative. RADIOLOGY: Abdominal CT showed moderate nonspecific bilateral perinephric stranding without hydronephrosis or nephrolithiasis, suspected right renal cyst, renal sonogram could better evaluate. Hepatic steatosis and hepatomegaly, patch ground glass opacities in the lung base concerning for pneumonia. Covid-19 could give this appearance. Final chest x-ray showed grossly unchanged bilateral interstitial predominantly airspace disease. DISCHARGE PLAN: The patient will be discharged home in stable condition. He is to resume his previous diet and increase his activity as tolerated. In addition to his routine home medications, he is to continue with azithromycin, cefdinir, dexamethasone, guaifenesin, Ventolin inhaler and Align. He is to followup with his primary care physician, Dr. Fofana, in one to two weeks. At that time, he may benefit from a renal ultrasound. He is to return to the hospital or followup with Dr. Fofana for any problems or complications. DISCHARGE MEDICATIONS: 1. Metformin. 2. Hydrochlorothiazide. 3. Furosemide. 4. Amlodipine benazepril. 5. Aspirin. 6. Methocarbamol. 7. Esomeprazole. 8. Multivitamin. 9. Atorvastatin. 10. Align. 11. Cefdinir. 12. Dexamethasone. 13. Guaifenesin. 14. Albuterol inhaler. 15. Azithromycin. #[id number] [facility]
== END 2020-05-08 16:21 | disposition home or self-care (01) | DRG 871 ==
LOC: ER 16:50 → MS 20:19 → OBSVTOIN 20:19
PROVIDERS: ADMIT Nurse Practitioner Family; ATTEND Nurse Practitioner Acute Care
PROC: XW033E5 Introduction of Remdesivir Anti-infective into Peripheral Vein, Percutaneous Approach, New Technology Group 5 (ICD-10-PCS; principal; 2020-05-05)
DX: A41.89 Other specified sepsis (principal); U07.1 COVID-19; J12.82 Pneumonia due to coronavirus disease 2019; E87.2 Acidosis; I50.32 Chronic diastolic (congestive) heart failure; R09.02 Hypoxemia; R31.0 Gross hematuria; N28.9 Disorder of kidney and ureter, unspecified; I11.0 Hypertensive heart disease with heart failure; E11.51 Type 2 diabetes mellitus with diabetic peripheral angiopathy without gangrene; I25.10 Atherosclerotic heart disease of native coronary artery without angina pectoris; Z95.5 Presence of coronary angioplasty implant and graft; E87.6 Hypokalemia; E83.42 Hypomagnesemia; E78.5 Hyperlipidemia, unspecified; I87.2 Venous insufficiency (chronic) (peripheral); E66.9 Obesity, unspecified; D75.1 Secondary polycythemia; Z79.82 Long term (current) use of aspirin; Z79.84 Long term (current) use of oral hypoglycemic drugs; Z87.891 Personal history of nicotine dependence; Z79.899 Other long term (current) drug therapy; Z68.35 Body mass index [BMI] 35.0-35.9, adult

== ENCOUNTER → 2020-05-17 | Outpatient (CLI) | payer MEDICARE | LOC: GMAM 16:52 | PROVIDERS: ATTEND Family Medicine | DX: R94.5 Abnormal results of liver function studies (principal); J12.82 Pneumonia due to coronavirus disease 2019 ==